=== PATIENT | female | born 1940 | race Caucasian/White ===

== ENCOUNTER → 2021-10-01 11:04 | Outpatient (CLI) | payer MEDICARE, OTHER, SELFPAY ==
--- NOTE | 2021-10-01 10:30 | DI.RAD_ITS ---
Exam(s) XR WRIST RT COMPLETE EXAM: XR WRIST RT COMPLETE CLINICAL HISTORY: Fracture distal radius, Pain in RT wrist--M25.531. TECHNIQUE: 2D digital imaging was performed. COMPARISON: No exams were available for comparison FINDINGS: 3 views There is a subtle nondisplaced fracture of the distal radius at the level of the radial styloid. Thi s violates the radiocarpal joint surface. There does not appear to be an obvious step at this level of the articular surface. There is no fracture of the ulnar styloid. No fracture of the scaphoid evident. Scapholunate distan ce is normal. IMPRESSION: Fracture of the distal radius which violates the radiocarpal joint surface. DATA REPOSITORY: RADIATION DOSE DELIVERED:
== END ==
PROVIDERS: Visit Provider Physician Assistant Medical
DX: S52.501A Unspecified fracture of the lower end of right radius, initial encounter for closed fracture (principal); X58.XXXA Exposure to other specified factors, initial encounter
CPT/HCPCS: 73110

== ENCOUNTER 2021-10-10 09:51 | Outpatient (CLI) | payer MEDICARE, OTHER, SELFPAY ==
--- NOTE | 2021-10-10 09:00 | DI.RAD_ITS ---
Exam(s) XR WRIST RT COMPLETE EXAM: XR WRIST RT COMPLETE CLINICAL HISTORY: RIGHT DISTAL RADIUS FRACTURE. TECHNIQUE: 2D digital imaging was performed of the right wrist. Three views were obtained. Scaphoid , PA, lateral and oblique views were obtained. COMPARISON: CR XR WRIST RT COMPLETE from 10/01/2021 FINDINGS: BONES: There has been no change in alignment of the fracture of the radial styloid process. No bony destructive lesion is seen. JOINTS: The carpal bones are normally aligned. SOFT TISSUE: Normal. IMPRESSION: Stable distal radial fracture. DATA REPOSITORY: RADIATION DOSE DELIVERED:
--- OUTSIDE RECORDS SUMMARY | 2021-10-10 09:53 | XMS_ITS ---
:1940 Author Care Team Providers Name Role Phone ALIN BARROSO MD Primary Care Provider [phone] Allergies Code Code System Name Reaction Severity Status Onset 2670 RxNorm Codeine ? ? Active ? 7052 RxNorm Morphine ? ? Active ? 226674 RxNorm Nexium ? ? Active ? 84858 RxNorm Percocet ? ? Active ? Medications Name Status Start Date Stop Date ? ? amlodipine 5 mg tablet Active ? Not avail able cephalexin 500 mg capsule Active ? Not av ailable ciprofloxacin 250 mg tablet Active ? Not available diclofenac 1 % topical gel Active ? Not a vailable APPLY 2 GRAMS TO THE AFFECTED AREA(S) BY TOPICAL ROUTE 4 TIMES PER DAY Lantus Solostar U-100 Insulin 100 unit/mL (3 mL) Active ? Not available subcutaneous pen losartan 50 mg tablet Active ? Not availa ble metformin 500 mg tablet Active ? Not avai lable metformin ER 500 mg tablet,extended release 24 hr Active ? Not available metoprolol tartrate 50 mg tablet Active ? Not available omeprazole 20 mg capsule,delayed release Active ? Not available pravastatin 20 mg tablet Active ? Not harris ilable sulfacetamide sodium 10 % eye drops Active ? Not available Problems None recorded. Procedures Date Name Performed by ? 07/20/2019 XR, Knee, 3 View [facility] ([facility] [address] [place] [address] (Work Place) Results Lab Results None recorded. Past Encounters None recorded. Social History None recorded. Vaccine List None recorded. Plan of Care Reminders Provider Appointments None recorded. ? ? Lab None recorded. ? ? Referral None recorded. ? ? Procedures None recorded. ? ? Surgeries None recorded. ? ? Imaging None recorded. ? ? Vitals Blood Pressure 134/78 mm[Hg]
== END 2021-10-10 09:52 | disposition home or self-care (01) ==
LOC: DIORS 09:52
PROVIDERS: Visit Provider Physician Assistant Surgical
DX: S52.501A Unspecified fracture of the lower end of right radius, initial encounter for closed fracture (principal); W18.09XA Striking against other object with subsequent fall, initial encounter
CPT/HCPCS: 99203; 73110

== ENCOUNTER 2022-10-03 07:38 | Inpatient (IN) | payer MEDICARE, OTHER, SELFPAY ==
[2022-10-03] VITALS (13 sets, daily range): BP systolic 109–188; BP diastolic 7–88; PULSE 91–105; RESP 18–22; TEMP 36.1–37; O2SAT 88–96
--- NOTE | 2022-10-03 07:45 | RT.EKG_ITS ---
APPROVED REPORT Exam: Resting ECG Reason for Exam: abd pain Patient Location: E HR:86 bpm ECG Measurements Heart Rate 86 AXIS ME 231 P 55 QRSd 97 QRS 20 QT 392 T 42 QTc 470 Conclusion Sinus rhythm...normal P axis, V-rate 60- 99 Prolonged ME interval...ME >220, V-rate 50- 90
--- NOTE | 2022-10-03 07:45 | DI.CT_ITS ---
Exam(s) CT ABDOMEN PELVIS W EXAM: CT ABDOMEN PELVIS W CLINICAL HISTORY: abd pain/n/v; eval for sbo. TECHNIQUE: Imaging Protocol: Axial computed tomography images with coronal and sagittal reformatted images were created and reviewed CONTRAST MATERIAL: Intravenous: Omnipaque 350 Contrast volume:100 ml Oral: / no COMPARISON: No exams were available for comparison FINDINGS: ABDOMEN: Lung Bases: Normal where visualized. Liver: Normal density. No measurable mass. Gallbladder and biliary tract: Status post cholecystectomy. Mild intra and extrahepatic biliary dilat ation, likely chronic. Pancreas: Somewhat atrophic. No abnormal calcifications or inflammatory process. Spleen: Normal. Kidneys: Normal size, contour and axis. No radiodense stones or obstructive uropathy. Small bilateral renal cysts. No suspicious masses seen. Adrenal glands: No masses seen. Abdominal Aorta: Abdominal portion non-dilated. Mild there are sclerotic changes. Soft tissues/bowel: Large left abdominal wall hernia containing multiple loops of bowel. An anastomos is is seen within this region. There is a transition point seen within this region with decompressed distal small bowel and [id number] dilated proximal bowel. A left colostomy is noted lateral t o the level of the hernia. There is no evidence of obstruction at the colostomy. The colon is not d ilated. Rectal anastomosis is unremarkable. Appendix is not seen.. PELVIS: Bladder: No gross wall thickening. No calculi.No focal mass. Peritoneal cavity: Increased fluid low in the pelvis. No focal, collection or mesenteric inflammatory response. Bones: Degenerative changes in the spine and pelvis. Reproductive organs: Status post hysterectomy. Lymph nodes: Unremarkable. Impression: Large left anterior abdominal wall hernia, containing loops of small bowel with transition point caus ing obstruction. The hernia lies medial to the colostomy which is unremarkable. Findings called to the emergency department provider. RADIATION DOSE DELIVERED: 1,368.88mGy.cm Total DLP DATA REPOSITORY: All CT scans at this facility are submitted to the National Radiology Data Registry (NRDR) Dose Index Registry (DIR) with the [employer] (ACR). RADIATION OPTIMIZATION: All CT scans at this facility use at least one of these dose optimization te chniques: automated exposure control; mA and/or kV adjustment per patient size (includes targeted exa ms where dose is matched to clinical indication); or iterative reconstruction.
--- NOTE | 2022-10-03 07:46 | ED.GENADUL_ITS ---
Discharge Plan Disposition Patient Disposition: Admit to [facility] Condition: Stable Discharge Details Clinical Impression: SBO (small bowel obstruction) Admit Date/Time: 10/03/22 10:18 Admit Provider: Warren Thomas Attending Provider: Warren Thomas Primary Care Provider: Loli,Local ED Provider: Merrill Elam Discharge Data Discharge Date/Time-TO BE ENTERED AT DEPARTURE: 10/03/22 12:38 HPI General Date/Time Provider Initiated Documentation: 10/03/22 07:42 . HPI Narrative: 82 year old female presents with c/o n/v, and diffuse abd pain, concerned for sbo. 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 She says that sx's started last night, have been persistent. No fevers. No cp/sob. Related Data Home Medications Medication Instructions Recorded Confirmed amlodipine 5 mg tablet 5 mg PO DAILY 10/01/21 10/10/21 aspirin 81 mg tablet,delayed 81 mg PO DAILY 10/01/21 10/10/21 release empagliflozin 10 mg tablet 10 mg PO DAILY 10/01/21 10/10/21 (Jardiance) insulin glargine 100 unit/mL 28 unit subcut DAILY 10/01/21 10/10/21 subcutaneous solution (Lantus U-100 Insulin) loperamide 2 mg tablet 2 mg PO Q6H PRN 10/01/21 10/10/21 (Anti-Diarrheal (loperamide)) losartan 50 mg tablet 50 mg PO DAILY 10/01/21 10/10/21 metoprolol tartrate 50 mg tablet 50 mg PO DAILY 10/01/21 10/10/21 omeprazole 20 mg capsule,delayed 20 mg PO DAILY 10/01/21 10/10/21 release pravastatin 20 mg tablet 20 mg PO DAILY 10/01/21 10/10/21 Allergies Allergy/AdvReac Type Severity Reaction Status Date / Time codeine Allergy Verified 10/10/21 08:58 esomeprazole [From Nexium] Allergy Verified 10/10/21 08:58 morphine Allergy Verified 10/10/21 08:58 General Stated Complaint: Abd Prob BREANN: 3 Review of Systems Narrative: CONST: no fever or chills HEENT: no sore throat SKIN: no rashes PULM: no sob, no cough CARD: no cp, no palpitations ABD: +abd pain; +N/V EXTR: no swelling NEURO: No focal weakness PFSH All Active Problems (Updated 10/03/22 @ 10:16 by Merrill Elam MD) SBO (small bowel obstruction) (Acute) Fracture of right distal radius (Acute) Social History Smoking/Tobacco Use Status: Never Smoking risk assessment performed?: Yes Drug use: Never Substance use type: does not use Housing: house Do you feel safe at home: Yes Do you feel safe in your relationship?: Yes Exam Narrative Exam Narrative: Const: overweight, uncomfortable, but non-toxic HEENT: normocephalic, atraumatic; MMM Lungs: CTA, no wheezing or rales Heart: RRR Abd:multiple scars, colostomy in lower abd. Diffusely tender Ext: well perfused Neuro: non-focal Skin: no rashes Course 82 yo female with c/o abd pain, n/v, concerned for sbo. 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 She also says she has never had to have surgery to resolve sbo, has improved with NGT. Last one was 1 year ago. All surgeries at [facility]. Reevaluation(s) Initial Evaluation: 1006 - pt resting relatively comfortably, still with fair amount of pain. Non vomiting since being in ED. Consultations Consultation #1: 1005 - spoke to radiologist, pt has large hernia with focal transition point and sbo. Consultation #2: 1015 - spoke to surgery, NGT, will admit for further eval and tx. Asked to place bridging orders. I spoke and confirmed code status with pt. Vital Signs Vital signs: Vital Signs Temperature 36.4 C L 10/03/22 07:39 Pulse 92 H 10/03/22 07:39 Respiratory Rate 18 10/03/22 07:39 Blood Pressure 160/55 H 10/03/22 07:39 Pulse Oximetry 96 10/03/22 07:39 Temperature 36.4 C L 10/03/22 07:39 Temperature Source Tympanic 10/03/22 07:39 Pulse 92 H 10/03/22 07:39 Respiratory Rate 18 10/03/22 07:39 Respiratory Effort Normal, Non-Labored 10/03/22 07:45 Blood Pressure 160/55 H 10/03/22 07:39 Blood Pressure Position Supine 10/03/22 07:39 Pulse Oximetry 96 10/03/22 07:39 Oxygen Delivery Method Room Air 10/03/22 07:39 Oxygen Flow Rate 0 10/03/22 07:39 Pain Level 10 10/03/22 07:39
[2022-10-03 07:53] LABS: Abs Immature Grans 0.05 10^3/uL (0.0-0.06); Absolute Basophil Count 0.07 10^3/uL (0.0-0.2); Absolute Eosinophil Count 0.01 10^3/uL (0.0-0.7); Absolute Monocyte Count 0.36 10^3/uL (0.1-0.8); Absolute Neutrophil Count 9.36 10^3/uL (1.2-6.7); Basophils % 0.6; Eosinophils % 0.1; HCT 45.9 % (36.0-46.0); HGB 15.3 g/dL (11.2-15.7); Immature Grans % 0.4; Lymphocytes % 12.8; MCH 27.5 pg (27.0-33.0); MCHC 33.3 % (32.0-36.0); MCV 83 fL (80-95); MPV 10.5 fL (8.0-11.0); Monocytes % 3.2; Neutrophils % 82.9; Platelet Count 349 10^3/uL (130-400); RBC 5.56 10^6/uL (3.93-5.22); RDW 12.7 % (11.7-14.6); RDW-SD 38.3 fL; WBC 11.29 10^3/uL (4.4-10.8)
[2022-10-03] MEDS: HYDROmorphone 2 MG/ML SYR 1 MG IVP ×2 (07:53→10:16)
[2022-10-03 07:54] LABS: Absolute Lymphocyte Count 1.45 10^3/uL (1.2-3.4)
[2022-10-03 07:55] LABS: Lactate 2.1 mmol/L (0.6-1.4)
[2022-10-03] MEDS: Ondansetron 4 MG/2 ML VIAL IVP ×4 (07:56→21:18)
[2022-10-03] MEDS: Normal Saline 1,000 ML 1000 ML IV (07:57)
[2022-10-03 08:19] LABS: ALT 38 U/L (14-59); AST 26 U/L (15-37); Albumin 4.1 g/dL (3.4-5.0); Alkaline Phosphatase 84 U/L (46-116); Anion Gap 14.1 mmol/L (3-11); BUN 20 mg/dL (7-18); Bilirubin, Total 1.5 mg/dL (0.2-1.0); CO2 23.9 mmol/L (21.0-32.0); Calcium 9.5 mg/dL (8.5-10.1); Chloride 102 mmol/L (98-107); Estimated GFR 56.25 (mL/min/1.73m2); Glucose 320 mg/dL (74-106); Lipase 22 U/L (16-77); Magnesium 1.6 mg/dL (1.8-2.4); Potassium 4.1 mmol/L (3.5-5.1); Sodium 140 mmol/L (136-145); Total Protein 8.1 g/dL (6.4-8.2); Troponin I < 50 ng/L (<or=60)
[2022-10-03] MEDS: Omnipaque 350 MG/ML 100 ML BTL IJ (09:16)
[2022-10-03] MEDS: Normal Saline - Diluent 50 ML VIAL IJ (09:18)
--- NOTE | 2022-10-03 10:41 | HPE_ITS ---
Date of service: 10/03/22 Time of Service: 10:41 Assessment and Plan Assessment and plan (1) SBO (small bowel obstruction): Status: Acute Assessment and plan: I agree that this seems most consistent with a partial small bowel obstruction. Given her age, medical comorbidities, previous experience with bowel obstruction, and complex abdominal surgical history, I think that an attempt at nonoperative management is very reasonable here. We will continue with nasogastric tube decompression. We did discuss the role of a Gastrografin challenge, but she tells me she has quite a bit of difficulty with enteral contrast and would prefer to avoid that at this time. Based on her exam, I think that is reasonable. History of Present Illness History of Present Illness Chief Complaint: Abdominal pain Narrative: Marychuy is 82 years old. 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 That end colostomy is permanent. She also has a known ventral hernia. She has declined surgical intervention in the past because of the risk of the operation. Approximately 2 and half days ago she started to experience multiple episodes of loose bowel movements into the colostomy bag. She described it as the runs. Then, over the past 24 hours, she noticed no output into the colostomy, and increasing abdominal pain with associated nausea and vomiting. She described it as similar to previous episodes of partial bowel obstructions. She has been treated in the hospital previously. She is typically treated with nasogastric tube decompression and bowel rest. She tells me that on average ret urn to bowel function occurs in approximately 5 to 7 days. Otherwise, she has been in her usual state of health with no particular complaints. She came to the emergency department today because of the symptoms, and underwent a CAT scan that did suggest a partial small bowel obstruction in the area of her ventral hernia. She also has a leukocytosis of about 11,000. She was treated with nasogastric tube decompression and admitted with intravenous fluids. Review of Systems Constitutional Constitutional: Denies body ache(s), Denies fatigue, Denies fever(s) and Denies poor appetite Eyes Eyes: Reports system reviewed and no additional complaints, except as documented ENT Ears, Nose, Mouth, and Throat: Reports system reviewed and no additional complaints, except as documented Cardiovascular Cardiovascular: Denies chest pain and Denies dyspnea Respiratory Respiratory: Denies chest congestion, Denies cough and Denies dyspnea Gastrointestinal Gastrointestinal: Reports abdominal pain, Reports bloating, Reports nausea and Reports vomiting Genitourinary Genitourinary: Reports system reviewed and no additional complaints, except as documented Musculoskeletal Musculoskeletal: Reports system reviewed and no additional complaints, except as documented Endocrine Endocrine: Denies fatigue PFSH All Active Problems SBO (small bowel obstruction) (Acute) Fracture of right distal radius (Acute) Social History Smoking/Tobacco Use Status: Never Smoking risk assessment performed?: Yes Drug use: Never Substance use type: does not use Housing: house Do you feel safe at home: Yes Do you feel safe in your relationship?: Yes Meds Allergies and Home Medications Allergies Allergy/AdvReac Type Severity Reaction Status Date / Time codeine Allergy Verified 10/10/21 08:58 esomeprazole [From Nexium] Allergy Verified 10/10/21 08:58 morphine Allergy Verified 10/10/21 08:58 Home Medications Medication Instructions Recorded Confirmed Type amlodipine 5 mg tablet 5 mg PO DAILY 10/01/21 10/10/21 History aspirin 81 mg tablet,delayed 81 mg PO DAILY 10/01/21 10/10/21 History release empagliflozin 10 mg tablet 10 mg PO DAILY 10/01/21 10/10/21 History (Jardiance) insulin glargine 100 unit/mL 28 unit subcut DAILY 10/01/21 10/10/21 History subcutaneous solution (Lantus U-100 Insulin) loperamide 2 mg tablet 2 mg PO Q6H PRN 10/01/21 10/10/21 History (Anti-Diarrheal (loperamide)) losartan 50 mg tablet 50 mg PO DAILY 10/01/21 10/10/21 History metoprolol tartrate 50 mg tablet 50 mg PO DAILY 10/01/21 10/10/21 History omeprazole 20 mg capsule,delayed 20 mg PO DAILY 10/01/21 10/10/21 History release pravastatin 20 mg tablet 20 mg PO DAILY 10/01/21 10/10/21 History Exam Const General: cooperative Nutritional Appearance: average body habitus Orientation: alert, awake and oriented x3 HENMT Head: normal to inspection Resp Effort & Inspection: no cough Auscultation: clear to auscultation bilaterally Cardio Rate: regular rate Rhythm: regular rhythm Heart Sounds: S1 normal and S2 normal GI Palpation: soft, no guarding and hernia (Mostly reducible incisional hernia) Auscultation: normal bowel sounds Other: Her colostomy is pink and healthy appearing. There are some gas, and some liquid stool in the bag. Results Labs 10/03/22 07:47 10/03/22 07:47 Labs: Laboratory Results - last 24 hr 10/03/22 10/03/22 10/03/22 07:47 07:47 07:47 WBC 11.29 H RBC 5.56 H Hgb 15.3 Hct 45.9 MCV 83 MCH 27.5 MCHC 33.3 RDW 12.7 Plt Count 349 MPV 10.5 Immature Gran % 0.4 Neutrophils % 82.9 Lymphocytes % 12.8 Monocytes % 3.2 Eosinophils % 0.1 Basophils % 0.6 Nucleated RBC % 0.0 Absolute Neutrophils 9.36 H Absolute Lymphocytes 1.45 Absolute Monocytes 0.36 Absolute Eosinophils 0.01 Absolute Basophils 0.07 VBG Lactate 2.1 H Sodium 140 Potassium 4.1 Chloride 102 Carbon Dioxide 23.9 Anion Gap 14.1 H BUN 20 H Creatinine 1.0 Est GFR (CKD-EPI 2020) 56.25 Glucose 320 H Calcium 9.5 Magnesium 1.6 L Total Bilirubin 1.5 H AST 26 ALT 38 Alkaline Phosphatase 84 Troponin I < 50 Total Protein 8.1 Albumin 4.1 Lipase 22 Last Vital Signs Temp 97.5 F L 10/03/22 07:39 Pulse 92 H 10/03/22 07:39 Resp 18 10/03/22 07:39 BP 160/55 H 10/03/22 07:39 Pulse Ox 96 10/03/22 07:39 Time Spent Time spent with Patient: 40-54 minutes Time was spent: preparing to see the patient(eg.review tests), ordering medications,tests, procedures, referring, communicating with other health healthcare recruiter and counseling the patient
--- NOTE | 2022-10-03 10:45 | DI.RAD_ITS ---
Exam(s) XR ABDOMEN FLAT PLATE EXAM: 2D digital imaging was performed. CLINICAL HISTORY: s/p NGT placement. COMPARISON: CT CT ABDOMEN PELVIS W from 10/03/2022 TECHNIQUE: Supine views of the abdomen performed. FINDINGS: A nasogastric tube is been inserted which projects in the stomach. Compared with the CT performed ea ier, the degree of bowel dilatation appears somewhat improved however small bowel dilatation does r emain present in the mid abdomen. Contrast is noted in the ureters and bladder related to prior CT. No evidence of obstruction. The ivonne ng bases appear clear. IMPRESSION: Decreased small bowel distention in the mid abdomen status post placement of nasogastric tube. DATA REPOSITORY: RADIATION DOSE DELIVERED:
--- NOTE | 2022-10-03 11:13 | NUR.NOTE ---
Nursing Note: PT reports obtained appox 1020 from betzaida MARTE
[2022-10-03 11:25] LABS: Troponin I < 50 ng/L (<or=60)
[2022-10-03] MEDS: Enoxaparin 40 MG/0.4 ML SYR SC (17:40)
[2022-10-03] MEDS: MORPHine 2 MG/ML SYR IVP (20:40)
[2022-10-03] MEDS: Normal Saline Flush 10 ML SYR IVP (20:41)
[2022-10-04] VITALS (7 sets, daily range): BP systolic 121–179; BP diastolic 48–78; PULSE 70–94; RESP 18; TEMP 35.6–36.9; O2SAT 93–96
[2022-10-04] MEDS: Normal Saline 1,000 ML 80 ML IV (02:35)
[2022-10-04] MEDS: Normal Saline Flush 10 ML SYR IVP (02:36)
[2022-10-04] MEDS: Ondansetron 4 MG/2 ML VIAL IVP ×2 (02:36→07:39)
[2022-10-04] MEDS: HYDROmorphone 2 MG/ML SYR 0.5 MG IVP ×3 (02:53→19:39)
[2022-10-04 07:20] LABS: HCT 40.8 % (36.0-46.0); HGB 13.2 g/dL (11.2-15.7); MCH 27.8 pg (27.0-33.0); MCHC 32.4 % (32.0-36.0); MCV 86 fL (80-95); MPV 11.4 fL (8.0-11.0); Platelet Count 305 10^3/uL (130-400); RBC 4.74 10^6/uL (3.93-5.22); WBC 9.15 10^3/uL (4.4-10.8)
[2022-10-04 07:37] LABS: BUN 16 mg/dL (7-18); CREATININE 0.8 mg/dL (0.55-1.02); Calcium 8.6 mg/dL (8.5-10.1); Chloride 109 mmol/L (98-107); Estimated GFR 73.52 (mL/min/1.73m2); Glucose 179 mg/dL (74-106); Potassium 4.3 mmol/L (3.5-5.1); Sodium 146 mmol/L (136-145)
[2022-10-04] MEDS: Pravastatin 20 MG TAB PO (07:39)
[2022-10-04] MEDS: amLODIPine 5 MG TAB PO (07:39)
[2022-10-04] MEDS: Losartan 50 MG TAB PO (07:39)
[2022-10-04] MEDS: Metoprolol 50 MG TAB PO (07:39)
[2022-10-04] MEDS: hydrALAZINE 20 MG/ML VIAL 10 MG IVP (08:38)
--- NOTE | 2022-10-04 09:24 | W.PM.PROGNOT ---
Date of Service Date of service: 10/04/22 Time of Service: 09:24 Assessment and Plan Assessment and plan (1) SBO (small bowel obstruction): Status: Acute Assessment and plan: NG tube drained about 400 mL since its insertion yesterday. And I think her exam is reassuring. White blood cell count has improved today. For now, we will continue with gastric decompression, and gentle resuscitation with intravenous fluids. If she has not made significant improvement over the next 24 hours, I will revisit the idea of a Gastrografin challenge with her. Subjective Subjective Interval history since last seen: Her abdomen feels a little bit better this morning, although she does have a headache. She was able to get some sleep last night. Exam GI Other: Abdomen soft, and not very distended. There is a little bit of gas in the ostomy bag. She is not tender. Objective Last Vital Signs Temp 96.6 F L 10/04/22 07:33 Pulse 77 10/04/22 07:33 Resp 18 10/04/22 03:13 BP 161/66 H 10/04/22 07:33 Pulse Ox 94 10/04/22 07:33 Laboratory Results - last 24 hr 10/03/22 10/04/22 10/04/22 11:01 05:58 05:58 WBC 9.15 RBC 4.74 Hgb 13.2 D Hct 40.8 MCV 86 MCH 27.8 MCHC 32.4 RDW 13.0 Plt Count 305 MPV 11.4 H Sodium 146 H Potassium 4.3 Chloride 109 H Carbon Dioxide 27.0 Anion Gap 10.0 BUN 16 Creatinine 0.8 Est GFR (CKD-EPI 2020) 73.52 Glucose 179 H Calcium 8.6 Troponin I < 50 Time Spent with Patient Time Spent with Patient: 25-34 minutes Time was spent: preparing to see the patient(eg.review tests) and counseling the patient
[2022-10-04] MEDS: Heparin 5,000 UNITS/ML VIAL 5000 UNITS SC ×2 (09:59→17:32)
[2022-10-04] MEDS: ACETAMINOPHEN 1,000 MG/100 ML BTL 400 MG IVPB ×3 (09:59→21:48)
[2022-10-04] MEDS: Prochlorperazine 10 MG/2 ML VIAL 5 MG IVP ×3 (09:59→21:49)
[2022-10-04] MEDS: Insulin Aspart 300 UNITS/3 ML PEN SC (11:43)
--- NOTE | 2022-10-04 13:41 | PDOC.CMIN ---
Date of service: 10/04/22 Time of Service: 13:41 Care Management Initial Assmt Initial Assessment REASON FOR HOSPITALIZATION:: SBO PREVIOUS FUNCTIONAL STATUS/SOCIAL/FAMILY SUPPORTS:: [place] lives in [place], alone () in senior housing. 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 She vacations in a cabin in [place] every year for three weeks. She has a colostomy bag which she manages independently. She is independent with her ADL's. CURRENT FUNCTIONAL STATUS:: Marychuy was sitting up in bed when CM met with her. She stated that she is here on vacation, renting a cabin in [place], which she rents for three weeks every summer. She is looking forward to returning to her vacation once her SBO resolves. She stated that she has had several SBO's, so she understands what is happening and knows what to expect. She reported that Dr. Thomas has been in communication with her MD at home. She stated that she is very happy with the care she is receiving at [facility]. CM will continue to follow. ADVANCE DIRECTIVES:: Not on file, pt not local. Has patient been provided with info about the portal/API?: Yes Did the patient sign up for the portal?: No CODE STATUS:: Full Code INSURANCE COVERAGE / FINANCIAL ISSUES:: [facility]/ [employer] CURRENT HOME/COMMUNITY SERVICES/EQUIPMENT:: Marychuy has a colostomy bag which she manages independently. PRIMARY CARE PHYSICIAN:: Not local. POTENTIAL DISCHARGE NEEDS:: Evaluations for further needs, follow up appointments. PATIENT/FAMILY EDUCATION NEEDS:: Review discharge instructions and limitation, discussion of self care needs including ask me three. ANTICIPATED BARRIERS TO DISCHARGE:: None. TRANSPORTATION:: Via private vehicle by family. PLAN:: Anticipate Marychuy will return home once medically cleared. She will transport via private vehicle with family. She will follow up with her PCP and discharge plan of care. CM will continue to follow. PFSH All Active Problems SBO (small bowel obstruction) (Acute) Fracture of right distal radius (Acute) Social History Smoking/Tobacco Use Status: Never Smoking risk assessment performed?: Yes Drug use: Never Substance use type: does not use Housing: house Do you feel safe at home: Yes Do you feel safe in your relationship?: Yes
[2022-10-05] MEDS: Insulin Aspart 300 UNITS/3 ML PEN SC ×4 (00:04→23:16)
[2022-10-05] MEDS: ACETAMINOPHEN 1,000 MG/100 ML BTL 400 MG IVPB ×3 (05:19→22:10)
[2022-10-05 06:32] VITALS: BP 154/72; PULSE 84; RESP 22; TEMP 36.3; O2SAT 96
[2022-10-05 06:37] LABS: HCT 42.4 % (36.0-46.0); HGB 13.8 g/dL (11.2-15.7); MCH 27.9 pg (27.0-33.0); MCHC 32.5 % (32.0-36.0); MCV 86 fL (80-95); MPV 11.4 fL (8.0-11.0); Platelet Count 274 10^3/uL (130-400); RBC 4.94 10^6/uL (3.93-5.22); RDW 12.8 % (11.7-14.6); RDW-SD 39.9 fL; WBC 8.31 10^3/uL (4.4-10.8)
[2022-10-05 06:50] LABS: Anion Gap 12.2 mmol/L (3-11); BUN 15 mg/dL (7-18); CO2 27.8 mmol/L (21.0-32.0); CREATININE 0.6 mg/dL (0.55-1.02); Calcium 8.6 mg/dL (8.5-10.1); Chloride 105 mmol/L (98-107); Estimated GFR 89.56 (mL/min/1.73m2); Glucose 192 mg/dL (74-106); Potassium 3.1 mmol/L (3.5-5.1); Sodium 145 mmol/L (136-145)
[2022-10-05] MEDS: POTASSIUM CHLORIDE 20 MEQ/100 ML BAG 30 MEQ IVPB ×2 (08:50→12:03)
[2022-10-05] MEDS: Normal Saline Flush 10 ML SYR IVP (09:00)
[2022-10-05] MEDS: Ondansetron 4 MG/2 ML VIAL IVP ×2 (09:00→22:08)
[2022-10-05] MEDS: HYDROmorphone 2 MG/ML SYR 0.5 MG IVP ×3 (10:03→23:04)
--- NOTE | 2022-10-05 10:35 | W.PM.PROGNOT ---
Date of Service Date of service: 10/05/22 Time of Service: 10:35 Assessment and Plan Assessment and plan (1) SBO (small bowel obstruction): Status: Acute Assessment and plan: She seems to be improving a bit in terms of stoma function this morning. I will keep the NGT tonight since the output was fairly high yesterday. Subjective Subjective Interval history since last seen: She feels much better this morning. She is excited to have gas and stool in the colostomy bag. NGT output was a little high overnight Exam GI Other: Abdomen remains soft, and not very distended this morning. She is not tender. There is certainly more gas in the colostomy bag. Objective Last Vital Signs Temp 97.3 F L 10/05/22 06:32 Pulse 84 10/05/22 06:32 Resp 22 10/05/22 06:32 BP 154/72 H 10/05/22 06:32 Pulse Ox 96 10/05/22 06:32 Laboratory Results - last 24 hr 10/05/22 10/05/22 05:47 05:47 WBC 8.31 RBC 4.94 Hgb 13.8 Hct 42.4 MCV 86 MCH 27.9 MCHC 32.5 RDW 12.8 Plt Count 274 MPV 11.4 H Sodium 145 Potassium 3.1 L D Chloride 105 Carbon Dioxide 27.8 Anion Gap 12.2 H BUN 15 Creatinine 0.6 Est GFR (CKD-EPI 2020) 89.56 Glucose 192 H Calcium 8.6 Time Spent with Patient Time Spent with Patient: 25-34 minutes Time was spent: preparing to see the patient(eg.review tests) and counseling the patient
[2022-10-05 11:02] VITALS: BP 153/73; PULSE 90; TEMP 36.5; O2SAT 95
[2022-10-05] MEDS: Heparin 5,000 UNITS/ML VIAL 5000 UNITS SC ×2 (11:21→18:27)
[2022-10-05 15:03] VITALS: BP 171/71; PULSE 91; TEMP 36.7; O2SAT 96
[2022-10-05] MEDS: Normal Saline 1,000 ML 80 ML IV (18:27)
[2022-10-05 19:40] VITALS: BP 161/70; PULSE 85; RESP 16; TEMP 36.6; O2SAT 96
[2022-10-05 23:09] VITALS: BP 166/72; PULSE 82; RESP 18; TEMP 36.9; O2SAT 96
[2022-10-06] MEDS: Heparin 5,000 UNITS/ML VIAL 5000 UNITS SC ×3 (02:17→17:37)
[2022-10-06] MEDS: Ketorolac 30 MG/ML VIAL IVP (03:14)
[2022-10-06] MEDS: Normal Saline Flush 10 ML SYR IVP ×2 (03:15→12:22)
[2022-10-06] MEDS: ACETAMINOPHEN 1,000 MG/100 ML BTL 400 MG IVPB ×4 (03:21→21:09)
[2022-10-06] MEDS: Normal Saline 1,000 ML 80 ML IV (05:54)
[2022-10-06] MEDS: Insulin Aspart 300 UNITS/3 ML PEN SC ×3 (06:01→17:38)
[2022-10-06 07:10] VITALS: BP 173/76; PULSE 87; RESP 17; TEMP 36.5; O2SAT 97
[2022-10-06] MEDS: Metoprolol 50 MG TAB PO (07:27)
[2022-10-06] MEDS: amLODIPine 5 MG TAB PO (08:20)
[2022-10-06] MEDS: Pravastatin 20 MG TAB PO (09:00)
[2022-10-06] MEDS: Losartan 50 MG TAB PO (09:00)
[2022-10-06] MEDS: Gastrografin 120 ML BTL PO (12:22)
[2022-10-06] MEDS: Ondansetron 4 MG/2 ML VIAL IVP (12:22)
--- NOTE | 2022-10-06 14:45 | DI.RAD_ITS ---
Exam(s) XR ABDOMEN FLAT PLATE EXAM: XR ABDOMEN FLAT PLATE CLINICAL HISTORY: sbo. s/p gastrografin. TECHNIQUE: 2D digital imaging was performed. COMPARISON: CT CT ABDOMEN PELVIS W from 10/03/2022 FINDINGS: Two views: NG tube remains in the stomach. Oral contrast has progressed into the colon. Anterior abdominal hernia mesh again noted. IMPRESSION: Enteric contrast has progressed into the colon. DATA REPOSITORY: RADIATION DOSE DELIVERED:
--- NOTE | 2022-10-06 15:15 | PDOC.CMPRO ---
Date of service: 10/06/22 Time of Service: 15:15 Care Management Progress Note Progress Note Text Progress Note Text: S/O: Remains pleasant in interaction, awaiting updates re: discharge planning guidance from surgeon; following. A: 82 year old female admitted to [facility] 10/03/22 for SBO P: No change to overall plan; Marychuy will return home once medically cleared. She will transport via private vehicle with family. She will follow up with her PCP and discharge plan of care. CM will continue to follow.
[2022-10-06 15:40] VITALS: BP 167/83; PULSE 77; RESP 18; TEMP 36.5; O2SAT 95
--- NOTE | 2022-10-06 16:24 | PGE_ITS ---
Date of Service Date of service: 10/06/22 Time of Service: 16:25 Assessment and Plan Assessment and plan (1) SBO (small bowel obstruction): Status: Acute Assessment and plan: - Patient had a Gastrografin challenge this a.m. She has had multiple output from her colostomy bag. She has good sounds MyOxin on auscultation. Flatplate shows resolution of the obstruction. Patient is hungry and would like to eat. We will clamp her tube and start clear liquids. Ambulation is encouraged. Patient has had multiple bowel structures patient has had multiple bowel obstructions in the past and is familiar with patient has had multiple bowel obstructions in the past and is familiar with routine cares. She has been up ambulating. all her previous obstructions have resolved with conservative care This document was created with voice activated software and may contain errors. 30 mins spent with the patient today. (2) Chronic GERD: Status: Acute (3) Diabetes mellitus type 2 in obese: Status: Acute (4) HTN (hypertension): Status: Chronic (5) Colostomy in place: Status: Chronic (6) History of diverticulitis: Status: Acute Subjective Subjective Interval history since last seen: Pt is doing well. no headaches. No CP or SOB. no productive cough. no d ysuria. no leg pain or swelling. Pt had a Gastrografin challenge this morning. She emptied her colostomy bag 4 times. She has had a high output from her NG tube, but she has been getting 2 to 3 cups of ice chips per shift. She is passing gas. She is hungry. She is having no abdominal pain. 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 She has had 7 bowel obstructions in the past. She feels like she is doing better today. Exam Narrative Exam Narrative: PHYSICAL EXAM GENERAL APPEARANCE: Alert, healthy appearance, oriented, x 3,? in no acute distress HYDRATION: Well hydrated HEAD, EYES, EARS, NECK, THROAT: Head is normocephalic, pupils equal, round, reactive to light and accommodation, ocular movement intact, sclera clear and no jaundice. ?Dentition intact. No sore throat.? No jaw pain. No thrush patient notes pain in her nose from the NG tube. LUNGS: normal respiration/normal chest excursion. ?Clear to auscultation bilaterally. ? ?HEART: Regular rate and rhythm. no murmurs ABDOMEN: soft and non-tender to palpation.? + bowel sounds.? Stoma in left lower quadrant. It is quite retracted. Bag is in place. Patient denies pain or peristomal skin irritation. There is no parastomal hernia. Patient does use a convex style bag Objective Last Vital Signs Temp 36.5 C 10/06/22 15:40 Pulse 77 10/06/22 15:40 Resp 18 10/06/22 15:40 BP 167/83 H 10/06/22 15:40 Pulse Ox 95 10/06/22 15:40 Time Spent with Patient Time Spent with Patient: <25 minutes Time was spent: preparing to see the patient(eg.review tests), obtaining and/or reviewing separately otained hiistory, ordering medications,tests, procedures, referring, communicating with other health human services care specialist, indepentently interpreting results, counseling the patient and care coordination
[2022-10-06 20:16] VITALS: BP 148/81; PULSE 77; RESP 18; TEMP 36.4; O2SAT 96
[2022-10-07] MEDS: HYDROmorphone 2 MG/ML SYR 0.5 MG IVP (00:42)
[2022-10-07] MEDS: Heparin 5,000 UNITS/ML VIAL 5000 UNITS SC ×2 (00:43→10:33)
[2022-10-07] MEDS: Prochlorperazine 10 MG/2 ML VIAL 5 MG IVP (00:43)
[2022-10-07 03:44] VITALS: BP 171/73; PULSE 85; RESP 18; TEMP 36.3; O2SAT 96
[2022-10-07] MEDS: ACETAMINOPHEN 1,000 MG/100 ML BTL 400 MG IVPB ×2 (06:34→10:34)
[2022-10-07 07:11] VITALS: BP 175/73; PULSE 64; RESP 18; TEMP 36.8; O2SAT 97
[2022-10-07 07:34] LABS: Anion Gap 12.1 mmol/L (3-11); BUN 10 mg/dL (7-18); CO2 25.9 mmol/L (21.0-32.0); CREATININE 0.7 mg/dL (0.55-1.02); Calcium 8.7 mg/dL (8.5-10.1); Chloride 102 mmol/L (98-107); Glucose 149 mg/dL (74-106); Magnesium 1.5 mg/dL (1.8-2.4); Potassium 3.2 mmol/L (3.5-5.1); Sodium 140 mmol/L (136-145)
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
[2022-10-07] MEDS: amLODIPine 5 MG TAB PO (07:55)
[2022-10-07] MEDS: Omeprazole 20 MG CAPCR PO (07:55)
[2022-10-07] MEDS: Losartan 50 MG TAB PO (07:55)
[2022-10-07] MEDS: Metoprolol 50 MG TAB PO (07:56)
[2022-10-07] MEDS: Insulin Aspart 300 UNITS/3 ML PEN SC ×2 (07:56→11:53)
[2022-10-07] MEDS: Pravastatin 20 MG TAB PO (07:56)
--- NOTE | 2022-10-07 10:29 | DSE_ITS ---
Date of service: 10/07/22 Time of Service: 10:31 DS: Diagnosis Discharge Diagnosis (1) SBO (small bowel obstruction): Status: Acute (2) Chronic GERD: Status: Acute (3) Diabetes mellitus type 2 in obese: Status: Acute (4) HTN (hypertension): Status: Chronic (5) Colostomy in place: Status: Chronic (6) History of diverticulitis: Status: Acute Discharge Plan Disposition Condition: Stable Condition: Good Discharge Details Reason For Visit: SBO Admit Date/Time: 10/03/22 10:18 Admit Provider: Warren Thomas Attending Provider: Warren Thomas [facility] Hospital Course: see addendum Home Meds and New Rx's Prescriptions: No Action insulin glargine [Lantus U-100 Insulin] 100 unit/mL solution 28 unit subcut DAILY metoprolol tartrate 50 mg tablet 50 mg PO DAILY amlodipine 5 mg tablet 5 mg PO DAILY losartan 50 mg tablet 50 mg PO DAILY pravastatin 20 mg tablet 20 mg PO DAILY Jardiance 10 mg tablet 10 mg PO DAILY omeprazole 20 mg capsule,delayed release(DR/EC) 20 mg PO DAILY loperamide [Anti-Diarrheal (loperamide)] 2 mg tablet 2 mg PO Q6H PRN aspirin 81 mg tablet,delayed release (DR/EC) 81 mg PO DAILY Discharge Instructions Additional Instructions: -No driving for 24 hrs. -Follow up in [facility] Surgery Clinic: [phone] -soft diet/ low fiber diet x 5 days: No beef/pork raw vegetables x1 -week. Cooked vegetables are fine -no straining to move bowels -It is ok to shower. No bathe, soaking, swimming or hot tubs -Protein supplements daily. You may find that your appetite is smaller. Eat 3-6 small meals throughout the day. It is important to drink lots of water after being in the hospital, 6-10 glasses a day. -If you were given an incentive spirometry (breathing weaving supervisor?), continue to do this 10x/hour while awake. -We do want you up walking, at least 5-6 times per day. This is very important to prevent pneumonia and blood clots. You can climb stairs, take them slowly. -You may find that you are very tired after being in the hospital- this is normal. -please do not smoke for a minimum of 72 hours after surgery. Gastrointestinal Soft Diet Overview Overview What is a gastrointestinal soft diet? This diet is soft in texture, low in fiber, and easy to digest. The goal is to decrease) https://[email or web address]/articles/gas ?in the bowel that may cause and discomfort. This diet is often used after abdominal surgery or as a transitional diet after flares. Meats & Meat Substitutes ?? Foods Allowed: Chicken, turkey, fish, tender cuts of beef and pork, ground meats, eggs, creamy nut butters, tofu, skinless hot dogs, sausage patties without whole spices ?? Foods to Avoid : Tough, fibrous meats with gristle, meat with casings (hot dogs, sausage, kielbasa), lunch meats with whole spices, shellfish, beans, chunky peanut butter, nuts Fruits and Juices ?? Foods Allowed: Fruit juices without pulp, banana, avocado, applesauce, canned peaches and pears, cooked fruit without the skin/seeds.? Ground or over- cooked fruits.? Fruits ground finely in a ?smoothie?. ?? Foods to Avoid: Juices with pulp, fresh fruit (except banana and avocado), dried fruits, canned fruit cocktail and pineapple, coconut, frozen/thawed berries Vegetables ?? Foods Allowed: Well-cooked or canned vegetables, potatoes without skin, tomato sauces, vegetable juice ?? Foods to Avoid: Raw vegetables, all corn, all mushrooms, stewed tomatoes, potato skins, stir-hooks vegetables, sauerkraut, pickles, olives, all dried beans, peas, and legumes Cereals and Grains ?? Foods Allowed: Low- fiber dry or cooked cereals (less than 2 grams fiber per serving), white rice, pasta, macaroni, or noodles ?? Foods to Avoid: Cereals with nuts, berries, dried fruits, whole grain cereals, bran cereals, granola, brown or wild rice, whole grain pasta Breads and Crackers ?? Foods Allowed: White/refined breads and rolls, plain bagel, toast, plain crackers, glo crackers ?? Foods to Avoid: Whole grain breads- including white whole grain; bread/ rolls with raisins, nuts or seeds, multi-grain crackers Dairy ?? Foods Allowed: Milk, cheese, yogurt, milkshakes, pudding, ice cream, cottage cheese, sherbet ;?lactose free or low lactose versions if lactose intolerant ?? Foods to Avoid: Dairy product mixed with fresh fruit (except banana), berries, nuts or seeds Desserts ?? Foods Allowed: Plain cake, pudding, custard, ice cream, sherbet, gelatin, fruit whips ?? Foods to Avoid: Any dessert that contains nuts, dried fruits, coconut, or fruits with seeds Herbs and Spices ?? Foods Allowed: All ground spices or herbs, salt ?? Foods to Avoid: Whole spices such as peppercorns, whole cloves, anise seeds, celery seeds, sonam, christiano seeds, and fresh herbs Snacks/Other Foods ?? Foods Allowed: Sugar, honey, jelly, mayonnaise, mustard, soy sauce, oil, butter, margarine, marshmallows, cookies without dried fruits or nuts, snack chips and pretzels using refined flours ?? Foods to Avoid: Carbonated beverages, jams or jellies with seeds, popcorn After several weeks, slowly start to reintroduce the ?Foods to Avoid? back into your diet unless your doctor has told you otherwise. Try a small portion of one of these foods each day. If it does not bother you within 24 hours, it can be added to your diet. Continue to add new foods in this way. Some people may continue to have food sensitivities and may need to continue to avoid certain foods. If you cannot tolerate a food, avoid that food for a few weeks before you try it again. Guidelines when eating 1.? Avoid any food that you cannot tolerate or that causes gas, bloating, or stomach pain. 2.? Make time for your meals. Do not eat while you are in a hurry. Cut your food into small pieces. Chew each bite to a mashed potato consistency. Do not eat when you cannot concentrate on chewing well. 3.? Drink at least 6-8 cups of fluid per day? https://[email or web address]/articles/avoiding-dehydration Fluids include: water, coffee, tea, juice, milk, popsicles, soups, gelatin, pudding, ice cream, sherbet, and yogurt. In addition, choose caffeine-free beverages more often, especially if you are having?diarrhea. 4.? A daily multivitamin may be recommended if diet is limited in amounts or variety of foods. Do not take any herbal supplements without first checking with your doctor. Stand Alone Forms: Nursing Discharge Form Referrals: Warren Thomas MD [ [facility] STAFF PHYSICIAN] - 10/15/22 10:30 am Activity:: Activity as Tolerated Activity:: Activity as Tolerated Equipment/Supplies:: No Equipment Needed Diet:: low fiber x 5 days DS: Summary Time Spent with Patient providing and/or coordinating discharge services: Less than 30 minutes Status at Discharge Functional status at discharge: independent ambulation Overall status at discharge: patient is progressing back to baseline Mental Status: mental status grossly normal Speech and Movement: speech and movement normal Mood: congruent mood Affect: normal affect Exam Psych Mental Status: mental status grossly normal Speech and Movement: speech and movement normal Mood: congruent mood Affect: normal affect DS: Data Vitals/I&O Vitals and I&O: Vital Signs Temperature 36.8 C 10/07/22 07:11 Temperature Source Tympanic 10/07/22 07:11 Pulse 64 10/07/22 07:11 Pulse Rhythm Regular 10/07/22 01:57 Respiratory Rate 18 10/07/22 07:11 Respiratory Effort Normal, Non-Labored 10/07/22 01:57 Respiratory Depth Normal 10/07/22 01:57 Respiratory Pattern Irregular 10/07/22 01:57 Blood Pressure 175/73 H 10/07/22 07:11 Blood Pressure Mean 87 10/03/22 11:00 Blood Pressure Position Supine 10/03/22 07:39 Pulse Oximetry 97 10/07/22 07:11 Oxygen Delivery Method Room Air 10/07/22 07:11 Oxygen Flow Rate 0 10/07/22 07:11 Pain Level 0 10/07/22 07:30 Comment RN was notified of BP 10/06/22 15:40 Intake & Output 10/06/22 10/06/22 10/07/22 11:59 23:59 11:59 Intake Total 1126 / 2235.333 1109.333 / 2235.333 450.667 / 450.667 Output Total 1600 / 2500 900 / 2500 Balance -474 / -264.667 209.333 / -264.667 450.667 / 450.667 Intake: IV 1126 / 2235.333 1109.333 / 2235.333 90.667 / 90.667 Oral 360 / 360 Output: Gastric Drainage 1200 / 1200 Left Nare 1200 / 1200 Urine 400 / 400 Stool 900 / 900 Other: Urine Color Yellow Urine Appearance Clear Urine Odor Normal Stool Characteristics Liquid Voiding Methods Toilet Toilet Data Completed and Pending Labs on day of discharge: Labs from last 24 hours 10/07/22 06:20 Sodium 140 Potassium 3.2 L Chloride 102 Carbon Dioxide 25.9 Anion Gap 12.1 H BUN 10 Creatinine 0.7 Est GFR (CKD-EPI 2020) 86.30 Glucose 149 H Calcium 8.7 Magnesium 1.5 L PFSH All Active Problems (Updated 10/06/22 @ 16:27 by Jackelyn Fuchs DO) History of diverticulitis (Acute) Colostomy in place (Chronic) HTN (hypertension) (Chronic) Diabetes mellitus type 2 in obese (Acute) Chronic GERD (Acute) SBO (small bowel obstruction) (Acute) Fracture of right distal radius (Acute) Social History Smoking/Tobacco Use Status: Never Smoking risk assessment performed?: Yes Drug use: Never Substance use type: does not use Housing: house Do you feel safe at home: Yes Do you feel safe in your relationship?: Yes Time Spent with Patient Time Spent with Patient: <45 minutes Time was spent: preparing to see the patient(eg.review tests), obtaining and/or reviewing separately otained hiistory, ordering medications,tests, procedures, referring, communicating with other health care team assistant, indepentently interpreting results, counseling the patient and care coordination
--- NOTE | 2022-10-07 13:33 | PDOC.CMDIS ---
Date of service: 10/07/22 Time of Service: 13:33 LACE Index Scoring Tool Questions: Length of Stay (in days): 4 - 6 Was the patient admitted via the E.D.?: Yes Comorbidities: Diabetes w/o Complication E.D. Visits: 0 Answers: Total Score: 8 Risk of Readmission: Low Risk Care Management Discharge Plan Reason for Hospitalization: SBO Discharge Plan: Marychuy will return to [place] where she is currently on vacation prior to returning to her primary home and local services including her PCP in [place]. She will transport via private vehicle with family. Patient/Family Education Needs: Review discharge instructions, discuss Ask Me Three.
== END 2022-10-07 14:30 | disposition home or self-care (01) | DRG 395 ==
LOC: ER 10:38 → MS 12:24
PROVIDERS: Surgery; Admitting Provider Surgery; Emergency Provider Emergency Medicine; Visit Provider Surgery
DX: K43.6 Other and unspecified ventral hernia with obstruction, without gangrene (principal); K21.9 Gastro-esophageal reflux disease without esophagitis; E66.9 Obesity, unspecified; I10 Essential (primary) hypertension; Z68.33 Body mass index [BMI] 33.0-33.9, adult; Z93.3 Colostomy status; Z87.19 Personal history of other diseases of the digestive system; D72.829 Elevated white blood cell count, unspecified; E11.9 Type 2 diabetes mellitus without complications
CPT/HCPCS: 36415; 80048; 80053; 83690; 85027; 93005; 96361; 96374; 96375; 96376; 99222; 99232; 99238; 99285; J1650; 74018; 74177; 83605; 83735; 84484; 85025; 93010; J0131; J0360; J0780; J1170; J1644; J1885; J2270; J2405; J3480; J3490